=== PATIENT | female | born 1940 | race Caucasian/White ===

== ENCOUNTER → 2019-08-24 21:02 | Outpatient (CLI) | payer MEDICARE, MEDICAID, SELFPAY | PROVIDERS: PCP Internal Medicine Adolescent Medicine; Visit Provider Internal Medicine Adolescent Medicine | DX: Z20.828 Contact with and (suspected) exposure to other viral communicable diseases (principal) | CPT/HCPCS: 87275; 87276 ==

== ENCOUNTER 2020-02-01 01:56 | Inpatient (IN) | payer OTHER, MEDICARE, MEDICAID, SELFPAY ==
[2020-02-01] VITALS (16 sets, daily range): BP systolic 72–144; BP diastolic 40–90; PULSE 64–131; RESP 16–38; TEMP 36.8–42.2; O2SAT 78–99; BMI 19.5; BMI 20.8
--- NOTE | 2020-02-01 02:01 | PC.NURSE ---
unable to obtain blood pressure via manual or automatic at this time. md at bedside. attempting to obtain brachial and femoral pulse via palpation for arterial stick for abg. resp at bedside. pt remains with terminal breaths, 36 bpm; rectal temp obtained, 108F. double checked and maintained via rectal thermometer. suppository given, tylenol. stanley cath inserted. non rebreather remains.
--- NOTE | 2020-02-01 02:15 | PC.NURSE ---
continue to attempt to establish adequate iv access. IO in place. fluids infusing. attempting secondary line for continued infusions.
--- NOTE | 2020-02-01 02:30 | PC.NURSE ---
unable to obtain adequate secondary line. iv fluids infusing via IO. MD at bedside attempting to establish a central line at this time.
--- NOTE | 2020-02-01 02:38 | PC.NURSE ---
central line established to right anterior chest wall. portable chest xray performed. placement adjusted. unable to obtain flow with new placement. md removed and pressure dressing applied.
--- NOTE | 2020-02-01 02:40 | PC.NURSE ---
informed MD of bp. states he wants to get a better one before considering a pressor. cuffs changed, right arm in use.
--- NOTE | 2020-02-01 02:45 | PC.NURSE ---
secondary IV established to lower leg.
--- NOTE | 2020-02-01 02:48 | XR_ITS ---
PROCEDURE: XR CHEST PORTABLE CLINICAL HISTORY: SOB Central line placement COMPARISON: No exams were available for comparison FINDINGS: There are 3 images obtained during central line attempt. 2:49 a.m. right subclavian central line is present. The tip of the line is projected toward the neck/head not visible on the images. No evidence of pneumothorax. There is biapical pleural thickening and mild cardiomegaly with chronic pulmonary findings. Possible patchy infiltrate in the right upper lobe 2:57 a.m.. Central line tip is identified and is at the C4-C5 region on the right in the neck area. There is biapical pleural thickening 3:01 a.m.. Central venous line is been removed. No evidence of pneumothorax. There is biapical pleural thickening. Possible patchy infiltrate in the right upper lobe with some increase in markings with chronic changes in the lungs. Postsurgical changes right AC joint. Mild cardiomegaly. IMPRESSION: Status post placement of right subclavian central venous line which was subsequently removed as detailed above. Biapical pleural thickening with possible right upper lobe infiltrate with mild cardiomegaly. No evidence of pneumothorax. Dictated b Hany Austin MD 02/01/2020 06:03 Hany Austin MD in OV 02/01/2020 06:03
--- NOTE | 2020-02-01 02:56 | HMH.EDFEV ---
ED Disposition Clinical Impression: Severe sepsis with acute organ dysfunction, Severe sepsis with septic shock, Elevated troponin, VASU (acute kidney injury) UTI (urinary tract infection) Qualifiers: Urinary tract infection type: site unspecified Hematuria presence: without hematuria Qualified Code(s): N39.0 - Urinary tract infection, site not specified Disposition: Admitted As Inpatient Condition on Discharge: Critical Referrals: Provider,Referral, MD [Primary Care Provider] - - Critical Care Critical Care Time: Yes Attestation: On 02/01/20, the high probability of a clinically significant, sudden or life threatening deterioration of the following system(s) required my full and direct attention, intervention and personal management. The time I documented below is in addition to time spent performing reported procedures but includes the following listed in this critical care notation. Total Critical Care Time: 120 Vital system(s) involved:: Respiratory Failure, Shock (Septic) My critical care processes included: Assessment & monitoring of V/S, Initial and Re-exams, Data Review/Interpretation, Medication Orders and management, Documentation Medical Decision Making - Medical Records Medical records reviewed: Yes: I reviewed the patient's medical records. - [place] Inquiry Pt receiving controlled substance: No Vital Signs: 02/01/20 02:05 02/01/20 02:20 02/01/20 02:39 Temperature 108 F H Temperature Source Rectal Pulse Rate [Right Brachial] 121 H 131 H 122 H Respiratory Rate 35 H 37 H 36 H Blood Pressure [Right Arm] 73/42 L Blood Pressure Mean [Right Arm] 52 Blood Pressure Source [Right Arm] Automatic Cuff Blood Pressure Position [Right Arm] Sitting 02 Sat by Pulse Oximetry 78 L 99 95 Oxygen Delivery Method Non-Rebreather Non-Rebreather Non-Rebreather Oxygen Flow Rate (LPM) 15 15 02/01/20 03:18 02/01/20 04:12 02/01/20 04:32 Temperature Temperature Source Pulse Rate [Right Brachial] 114 H 107 H 109 H Respiratory Rate 38 H Blood Pressure [Right Arm] 80/40 L 89/50 L 72/49 L Blood Pressure Mean [Right Arm] 53 63 56 Blood Pressure Source [Right Arm] Automatic Cuff Automatic Cuff Automatic Cuff Blood Pressure Position [Right Arm] Sitting Sitting Sitting 02 Sat by Pulse Oximetry 99 99 95 Oxygen Delivery Method Non-Rebreather Non-Rebreather Non-Rebreather Oxygen Flow Rate (LPM) 02/01/20 04:35 02/01/20 04:45 Temperature 102.1 F H Temperature Source Rectal Pulse Rate [Right Brachial] 95 H Respiratory Rate 31 H Blood Pressure [Right Arm] 106/61 L Blood Pressure Mean [Right Arm] 76 Blood Pressure Source [Right Arm] Automatic Cuff Blood Pressure Position [Right Arm] Sitting 02 Sat by Pulse Oximetry 96 Oxygen Delivery Method Non-Rebreather Oxygen Flow Rate (LPM) - Lab Data Lab results reviewed: Yes: I reviewed the patient's lab results. Lab Results 02/01/20 02:31: Urine Color Straw, Urine Appearance Turbid, Urine pH 8.5, Ur Specific [place] 1.015, Urine Protein 3+, Urine Glucose (UA) Negative, Urine Ketones Negative, Urine Blood 3+, Urine Nitrate Negative, Urine Bilirubin Negative, Urine Urobilinogen 0.2, Ur Leukocyte Esterase 3+ A, Urine RBC Tntc, Urine WBC Tntc, Urine Bacteria 4+ 02/01/20 02:45: WBC 30.2 H*, RBC 4.53, Hgb 13.1, Hct 41.1, MCV 90.6, MCH 28.8, MCHC 31.8, RDW 17.3, Plt Count 351, MPV 9.4, Neut % (Auto) 89.2 H, Lymph % (Auto) 6.8 L, [place] % (Auto) 3.3, Eos % (Auto) 0.1, Baso % (Auto) 0.4, Neut # (Auto) 26.9 H, Lymph # (Auto) 2.1, [place] # (Auto) 1.0, Eos # (Auto) 0.0, Baso # (Auto) 0.1, Total Counted 100, Neutrophils % (Manual) 84 H, Lymphocytes % (Manual) 15, Monocytes % (Manual) 1 L, Platelet Estimate Normal, Stomatocytes 1+ 02/01/20 02:45: Sodium 155 H*, Potassium 4.6, Chloride 120 H, Carbon Dioxide 20 L, Anion Gap 19.6 H, BUN 85 H, Creatinine 1.30 H, Estimated Creat Clear 24, Estimated GFR 39 L, Est GFR ( Amer) 48 L, Glucose 270 H, Calcium 7.9 L, Total Bilirubin
[2020-02-01 02:58] LABS: Microscopic, Urine URINE MICROSCOPIC (MICROSCOPIC)
--- NOTE | 2020-02-01 03:00 | PC.NURSE ---
IVF's continue via IO and IV to left leg. multiple attempts to est IV access and femoral access for blood obtainment unsuccessful via md and rn, as well as draft roller picker. brother at bedside. discussed plan of care with; agreeable to make her comfortable and continue DNR as her wishes state . no additional requests.
[2020-02-01 03:01] LABS: Basophils # 0.1 K/mm3 (0-0.2); Basophils % 0.4 % (0.1-2.0); Eosinophils % 0.1 % (0.1-12.0); Hematocrit 41.1 % (37.0-47.0); Hemoglobin 13.1 g/dL (12.2-16.2); Lymphocytes # 2.1 K/mm3 (0.7-4.5); Lymphocytes % 6.8 % (10-50); Mean Corpuscular HGB Conc 31.8 g/dL (31.8-35.4); Mean Corpuscular Hemoglobin 28.8 pg (27.0-31.2); Mean Corpuscular Volume 90.6 fl (81-99); Mean Platelet Volume 9.4 fl (7.4-10.4); Monocytes % 3.3 % (1.7-9.3); Neutrophils # 26.9 K/mm3 (1.8-7.8); Neutrophils % 89.2 % (37.0-80.0); Platelet Count 351 K/mm3 (142-424); Red Blood Count 4.53 M/mm3 (4.20-5.40); Red Cell Distribution Width 17.3 % (11.5-17.5); White Blood Count 30.2 K/mm3 (4.8-10.8)
[2020-02-01 03:04] LABS: MANUAL DIFFERENTIAL MANUAL DIFFERENTIAL (MANUAL DIFF)
[2020-02-01 03:05] LABS: VBG Base Excess -8.7 mmol/L (-2.4-2.3); VBG HCO3 17.9 mmol/L (23-30); VBG Oxygen Saturation 94.1 % (50-70); VBG PH 7.29 mmol/L (7.31-7.41); VBG PO2 78.7 mmol/L (28-40)
[2020-02-01 03:07] LABS: Alanine Aminotransferase 77 U/L (12-78); Albumin Level 2.7 g/dl (3.5-5.0); Albumin/Globulin Ratio 0.8 (1.1-1.8); Alkaline Phosphatase 55 U/L (38-126); Anion Gap 19.6 mEq/L (5-15); Aspartate Amino Transferase 52 U/L (14-36); Bilirubin,Total 0.5 mg/dl (0.2-1.3); Calcium 7.9 mg/dl (8.4-10.2); Carbon Dioxide 20 mmol/L (22.0-30.0); Chloride 120 mmol/L (98-107); Creatinine Clearance Estimated 24 mL/min (50-200); Estimated Glomerular Filt Rate 39 ml/min (>60); GFR (African American) 48 ML/MIN (>60); Globulin 3.3 g/dL (1.3-3.2); Glucose 270 mg/dl (74-100); Lactic Acid 5.2 mmol/L (0.7-2.1); Potassium 4.6 mmoL/L (3.5-5.1)
--- NOTE | 2020-02-01 03:20 | PC.NURSE ---
no pressor at this time. pt continues to improve with ivf's. no new orders at this time.
[2020-02-01 03:24] LABS: Sodium 155 mmol/L (136-145); Troponin I 1.75 ng/ml (0.00-0.034)
[2020-02-01 03:25] LABS: Blood Urea Nitrogen 85 mg/dl (7-17)
[2020-02-01 03:28] LABS: Adenovirus,PCR Not Detected (NotDetected); Bordetella Pertussis Not Detected (NotDetected); Chlamydophila Pneumoniae, PCR Not Detected (NotDetected); Coronavirus 19, PCR Not Detected (NotDetected); Coronavirus 229E Not Detected (NotDetected); Coronavirus NL63 Not Detected (NotDetected); Coronavirus OC43 Not Detected (NotDetected); Coronovirus HKU1,PCR Not Detected (NotDetected); Human Metapneumovirus Not Detected (NotDetected); Influenza A, PCR Not Detected (NotDetected); Influenza AH1, 2009 Not Detected (NotDetected); Influenza AH1, PCR Not Detected (NotDetected); Influenza AH3,PCR Not Detected (NotDetected); Influenza B, PCR Not Detected (NotDetected); Mycoplasma Pneumoniae, PCR Not Detected (NotDetected); Parainfluenza 1, PCR Not Detected (NotDetected); Parainfluenza 2, PCR Not Detected (NotDetected); Parainfluenza 3, PCR Not Detected (NotDetected); Parainfluenza 4, PCR Not Detected (NotDetected); Respiratory Syncytial Virus Not Detected (NotDetected); Rhinovirus/Enterovirus Not Detected (NotDetected)
--- NOTE | 2020-02-01 03:29 | ECG_ITS ---
APPROVED REPORT Exam: Resting ECG HR:110 bpm ECG Measurements Heart Rate 110 AXES KS 128 P 77 QRSd 70 QRS -57 QT 308 T 33 QTc 416 <Conclusion> Sinus tachycardia Left axis deviation,LAHB Low voltage QRS NDST-T Changes Abnormal ECG Electronically signed by : Olegairo Yoder, 02/01/2020 14:59:44
[2020-02-01 03:35] LABS: Bilirubin,Urine Negative (Negative); Blood, Urine 3+ (Negative); Glucose,Urine (UA) Negative (Negative); Ketones,Urine Negative (Negative); Leukocyte Esterase,Urine 3+ (Negative); Nitrate,Urine Negative (Negative); PH,Urine 8.5 (5.0-8.5); Protein,Urine 3+ (Negative); Specific Gravity, Urine 1.015 (1.005-1.030); Urobilinogen,Urine 0.2 EU/dl (0.2)
[2020-02-01 03:46] LABS: Appearance,Urine Turbid (Clear); Color,Urine Straw (Yellow)
--- NOTE | 2020-02-01 03:50 | PC.NURSE ---
no pressor orders at this time. waiting on covid testing.
[2020-02-01 03:51] LABS: Bacteria,Urine 4+ /lpf; RBC,Urine TNTC #/hpf (0-3); WBC,Urine TNTC #/hpf (0-3)
[2020-02-01 04:12] LABS: Lymphocytes % 15 % (10-50); Monocytes % 1 % (2-9); Neutrophils % 84 % (42-76); Total Cells Counted 100
[2020-02-01 04:13] LABS: Platelet Estimate Normal; Stomatocytes 1+
--- NOTE | 2020-02-01 04:15 | PC.NURSE ---
no pressor orders at this time. bp continues to improve. pt's color and appearance, work of breathing improving. see vs.
--- NOTE | 2020-02-01 05:30 | PC.NURSE ---
patient up to floor via stretcher.
[2020-02-01 06:57] LABS: Reflex Lactic Add Lactic Reflex
[2020-02-01 07:16] LABS: Potassium 3.7 mmoL/L (3.5-5.1)
[2020-02-01 07:19] LABS: Anion Gap 15.7 mEq/L (5-15); Calcium 7.7 mg/dl (8.4-10.2); Carbon Dioxide 18 mmol/L (22.0-30.0); Creatinine Clearance Estimated 31 mL/min (50-200); Estimated Glomerular Filt Rate 48 ml/min (>60); GFR (African American) 58 ML/MIN (>60); Glucose 135 mg/dl (74-100); Lactic Acid Follow Up (RFLX 1) 2.6 mmol/L (0.7-2.1)
[2020-02-01 07:19] LABS: POC Glucose,Bedside 232 (70-110)
[2020-02-01 07:21] LABS: Chloride 128 mmol/L (98-107); Sodium 158 mmol/L (136-145)
[2020-02-01 07:22] LABS: Blood Urea Nitrogen 83 mg/dl (7-17)
--- NOTE | 2020-02-01 07:37 | P.CONPHA_ITS ---
[facility] Pharmacy VTE Monitoring - Patient Demographics Admission date: 02/01/20 Report Date: 02/01/20 Time: 07:38 Allergies/Adverse Reactions: Patient Allergies No Known Allergies Allergy (Verified 02/01/20 05:41) Height: 1.52 m Weight: 48.194 kg Patient Problems: Current Active Problems UTI (urinary tract infection) (Acute) Severe sepsis with acute organ dysfunction (Acute) Severe sepsis with septic shock (Acute) Elevated troponin (Acute) VASU (acute kidney injury) (Acute) - VTE Risk Labs: VTE Related Lab Results Hgb 13.1 g/dL (12.2-16.2) 02/01/20 02:45 Hct 41.1 % (37.0-47.0) 02/01/20 02:45 Plt Count 351 K/mm3 (142-424) 02/01/20 02:45 BUN 83 mg/dl (7-17) H 02/01/20 06:45 Creatinine 1.10 mg/dl (0.52-1.04) H 02/01/20 06:45 Estimated Creat Clear 31 mL/min (50-200) 02/01/20 06:45 VTE Score: 4 VTE Risk Level: Low Risk - Prophylaxis VTE Prophylaxis Ordered?: Yes Types of VTE Prophylaxis: TEDS Knee High Location of Applied Device: Bilateral Lower Extremeties - VTE Diagnosis Confirmed Treatment or plan recommended: Continue Current Treatment
[2020-02-01 07:46] LABS: Basophils # 0.2 K/mm3 (0-0.2); Basophils % 0.6 % (0.1-2.0); Eosinophils % 0.1 % (0.1-12.0); Hematocrit 46.9 % (37.0-47.0); Mean Corpuscular HGB Conc 31.2 g/dL (31.8-35.4); Mean Corpuscular Hemoglobin 28.7 pg (27.0-31.2); Mean Platelet Volume 10.3 fl (7.4-10.4); Monocytes # 2.1 K/mm3 (0.1-1.0); Monocytes % 6.1 % (1.7-9.3); Neutrophils # 29.7 K/mm3 (1.8-7.8); Neutrophils % 87.3 % (37.0-80.0); Platelet Count 240 K/mm3 (142-424); Red Cell Distribution Width 17.5 % (11.5-17.5)
[2020-02-01 07:50] LABS: Hemoglobin 14.6 g/dL (12.2-16.2)
--- NOTE | 2020-02-01 08:04 | HMH.HP ---
*Admission Date: 02/01/20 *Chief complaint: SICK *History of present illness: 79-year-old female long-term resident of [place] who presented to the ER via EMS due to worsening appearance of being ill. Was febrile, tachypneic, and showing mottling at the fpc. Patient is nonverbal and bedbound. Nursing contacted on-call physician, recommended coming to the ER for assessment. On arrival patient was hypothermic with a temperature 108, tachypneic, and appeared clinically dry. Initial work-up concerning for septic shock with organ dysfunction, elevated lactate, kidney injury, and electrolyte disturbances. Difficulty getting IV access in the ER with subsequent IO placement for fluid resuscitation. Unable to assess further history, review of systems, at bedside this morning as patient has by herself. [facility] History I have reviewed the patient's past medical history: No (Unable to obtain from patient, no patient surrogate at bedside) *Have you ever received a pneumonia vaccine?: Yes *Have you received a flu vaccine this season?: Yes Other Surgeries: Yes: Other - *Social History Smoking Status: Never smoker Alcohol Intake: never *Occupational Status:: disabled Housing: fpc *Travel in the last 8 weeks: None Family Hx:: Unable to obtain Review of Systems - Review of Systems Review of systems:: unable to obtain Meds Home Medications Medication Instructions Recorded Confirmed Type acetaminophen 500 mg tablet 500 mg G-TUBE Q6HP PRN 01/18/19 02/01/20 History baclofen 10 mg tablet 10 mg G-TUBE HS 01/18/19 02/01/20 History cholecalciferol (vitamin D3) 25 2,000 unit G-TUBE DAILY 01/18/19 02/01/20 History mcg (1,000 unit) capsule metoclopramide HCl 5 mg tablet 10 mg G-TUBE BID 01/18/19 02/01/20 History multivitamin,ww-wldy-wlibbzsm 1 tab G-TUBE DAILY 01/18/19 02/01/20 History polyethylene glycol 3350 17 17 g G-TUBE DAILY 01/18/19 02/01/20 History gram/dose oral powder sennosides 8.6 mg tablet 17.2 mg G-TUBE BID PRN 01/18/19 02/01/20 History Glycopyrrolate 1 mg G-TUBE BID 02/01/20 02/01/20 History Ipratropium/Albuterol Sulfate 3 ml IH Q6H PRN 02/01/20 02/01/20 History [Duoneb 3mL neb] Omeprazole [Omeprazole 20mg Tab] 20 mg G-TUBE DAILY 02/01/20 02/01/20 History Ondansetron [Zofran 4mg ODT] 4 mg G-TUBE Q6HP PRN 02/01/20 02/01/20 History levoFLOXacin [Levaquin] 500 mg G-TUBE DAILY 02/01/20 02/01/20 History Allergies Allergy/AdvReac Type Severity Reaction Status Date / Time No Known Allergies Allergy Verified 02/01/20 05:41 Exam Vital signs and Labs for Last 24 Hours: Temp Pulse Resp BP Pulse Ox 100.8 F H 102 H 30 H 144/90 H 90 L 02/01/20 05:30 02/01/20 05:30 02/01/20 05:45 02/01/20 05:30 02/01/20 05:45 Laboratory Results - last 24 hr 02/01/20 01:45: POC Glucose 232 H 02/01/20 02:31: Urine Color Straw, Urine Appearance Turbid, Urine pH 8.5, Ur Specific [place] 1.015, Urine Protein 3+, Urine Glucose (UA) Negative, Urine Ketones Negative, Urine Blood 3+, Urine Nitrate Negative, Urine Bilirubin Negative, Urine Urobilinogen 0.2, Ur Leukocyte Esterase 3+ A, Urine RBC Tntc, Urine WBC Tntc, Urine Bacteria 4+ 02/01/20 02:45: WBC 30.2 H*, RBC 4.53, Hgb 13.1, Hct 41.1, MCV 90.6, MCH 28.8, MCHC 31.8, RDW 17.3, Plt Count 351, MPV 9.4, Neut % (Auto) 89.2 H, Lymph % (Auto) 6.8 L, [place] % (Auto) 3.3, Eos % (Auto) 0.1, Baso % (Auto) 0.4, Neut # (Auto) 26.9 H, Lymph # (Auto) 2.1, [place] # (Auto) 1.0, Eos # (Auto) 0.0, Baso # (Auto) 0.1, Total Counted 100, Neutrophils % (Manual) 84 H, Lymphocytes % (Manual) 15, Monocytes % (Manual) 1 L, Platelet Estimate Normal, Stomatocytes 1+ 02/01/20 02:45: Sodium 155 H*, Potassium 4.6, Chloride 120 H, Carbon Dioxide 20 L, Anion Gap 19.6 H, BUN 85 H, Creatinine 1.30 H, Estimated Creat Clear 24, Estimated GFR 39 L, Est GFR ( Amer) 48 L, Glucose 270 H, Calcium 7.9 L, Total Bilirubin 0.5, AST 52 H, ALT 77, Alkaline Phosphatase 55, Troponin I 1.75 H, Total Protein 6.0 L
--- NOTE | 2020-02-01 08:11 | HMH.PHAINT ---
MEDICATION RECONCILIATION COMPLETED ON PATIENT USING MAR FROM [facility]. -LAUREN GOMEZ, ELLIOTTD
[2020-02-01 09:00] LABS: Adenovirus F 40/41, stool Not Detected (NotDetected); Astrovirus Not Detected (NotDetected); Campylobacter Not Detected (NotDetected); Clostridium Difficile A/B, PCR Not Detected (NotDetected); Cryptosporidium Not Detected (NotDetected); Cyclospora Cayetanesis Not Detected (NotDetected); Entamoeba histolytica Not Detected (NotDetected); Enteroaggregative E coli Not Detected (NotDetected); Enteropathogenic E coli Not Detected (NotDetected); Enterotoxigenic E coli Not Detected (NotDetected); Giardia lamblia Not Detected (NotDetected); Norovirus Not Detected (NotDetected); Plesimonas Shigalloides, PCR Not Detected (NotDetected); Rotavirus A Not Detected (NotDetected); Salmonella, PCR Not Detected (NotDetected); Sapovirus Not Detected (NotDetected); Shiga-like toxin E coli Not Detected (NotDetected); Shigella Enterovasive E coli Not Detected (NotDetected); Vibrio Cholerae Not Detected (NotDetected); Vibrio, PCR Not Detected (NotDetected); Yersinia Entercolitica, PCR Not Detected (NotDetected)
[2020-02-01 09:06] LABS: Reflex Lactic (2 hrs) Add Lactic Reflex
--- NOTE | 2020-02-01 10:46 | SW/DCPLANNER ---
Addendum entered by Gabi Snyder 02/01/20 15:01: OF 3:00 PM TODAY THIS PATIENT WILL CONVERT TO HOSPICE INPATIENT PALLIATIVE CARE... DR MOSES HAS AGREED WITH THE PLAN AND TO WITHDRAW ALL IV'S AND ANTIBIOTICS AND MAKE PATIENT COMFORTABLE AND PROVIDE SUPPORT TO FAMILY MEMBERS... Original Note: RECEIVED REFERRAL FOR A HOSPICE CONSULT FOR THIS PATIENT.... MS LONG IS A RESIDENT OF [place] AND PRESENTED INTO THE HOSPITAL UTI AND SEPTIC SHOCK....PATIENT HAS BEEN COMPROMISED FOR SOMETIME AND HER BROTHER IS HER GUARDIAN AND HE HAS AGREED TO HAVE HOSPICE COME AND EVALUATE..I TOLD HIM HOSPICE MAY BE CONTACTING HIM TO LET HIM KNOW THE PLAN...
--- NOTE | 2020-02-01 18:19 | PC.NURSE ---
did verify with hospice that they had spoke with brother who only wanted comfort care. may stop antibiotics and fluids
--- NOTE | 2020-02-01 18:30 | PC.NURSE ---
PT LETHARGIC T/O SHIFT, HOSPICE CONSULTED THIS AFTERNOON, FLUIDS AND ANTIBIOTICS HAVE BEEN D/C. IO ACCESS HAS BEEN D/C PER DR MOSES. PT HAS NEEDED SUCTION THIS SHIFT R/T N/V, 1 EPISODE OF EMESIS DURING BED CHANGE, WATERY STOOLS NOTED T/O SHIFT *3. STOOL SAMPLE SENT TO LAB THIS AM. PT DOES NOT SHOW SIGNS OF PAIN OR AGITATION INDICATED BY CALM RELAXED PRESENTATION. Q2 TURNS AND MOUTH CARE PER PROTOCOL. CURRENTLY ON 3L NC, FC DRAINING DARK [place]ST[place] COLORED URINE. PATIENT APPEARS COMFORTABLE, WILL CONTINUE TO MONITOR
[2020-02-02] VITALS (7 sets, daily range): BP systolic 93–107; BP diastolic 55–60; PULSE 51–102; RESP 16–30; TEMP 36.3–36.8; O2SAT 92–98; BMI 20.7
--- NOTE | 2020-02-02 06:27 | PC.NURSE ---
No changes this shift. Comfort care continued. Pt repositioned Q2H w/ oral care given as well. Vitale draining dark yellow urine. 3LNC in place. No BM or emesis noted this shift. Pt appears comfortable.
--- NOTE | 2020-02-02 06:43 | PC.NURSE ---
Bed scale was not working. RN notified.
--- NOTE | 2020-02-02 06:45 | PC.NURSE ---
Bed scale was not working. RN notified.
--- NOTE | 2020-02-02 06:47 | PC.NURSE ---
Bed scale was not working. RN notified
--- NOTE | 2020-02-02 07:52 | HMH.ACPN2 ---
Internal Medicine - PN: Subj *Date: 02/02/20 *Time: 07:52 Interval history: Unresponsive, minimal urine output. Exam Vital signs and Labs for Last 24 Hours: Temp Pulse Resp BP Pulse Ox 98.8 F 87 22 92/50 L 95 02/01/20 20:00 02/01/20 20:00 02/01/20 20:00 02/01/20 20:00 02/01/20 20:00 Laboratory Results - last 24 hr 02/01/20 06:45: WBC 34.0 H*, RBC 5.10, Hgb 14.6 D, Hct 46.9, MCV 92.0, MCH 28.7, MCHC 31.2 L, RDW 17.5, Plt Count 240 D, MPV 10.3, Neut % (Auto) 87.3 H, Lymph % (Auto) 6.0 L, [place] % (Auto) 6.1, Eos % (Auto) 0.1, Baso % (Auto) 0.6, Neut # (Auto) 29.7 H, Lymph # (Auto) 2.0, [place] # (Auto) 2.1 H, Eos # (Auto) 0.0, Baso # (Auto) 0.2 02/01/20 08:45: Stl Aeromonas (PCR) Not detected, Stl C. cayetanensis PCR Not detected, Stool Rotavirus (PCR) Not detected, Stl Adenov F 40/41 PCR Not detected, Stool Astrovirus (PCR) Not detected, Stool Campylobacter PCR Not detected, Stl C.difficile Tox PCR Not detected, Stool Cryptosporidium PCR Not detected, Stl E.coli Shiga Tox PCR Not detected, Stool E coli O157 PCR Not detected, Stl Enterotoxigenic E PCR Not detected, Stool EPEC (PCR) Not detected, Stool EAEC (PCR) Not detected, Stl E. histolytica PCR Not detected, Stool Giardia Lamblia PCR Not detected, Stool Salmonella PCR Not detected, Stool Sapovirus (PCR) Not detected, Stl P. shigelloides PCR Not detected, Stl Shigella/EIEC PCR Not detected, St Y.enterocolitica PCR Not detected, Stool Vibrio (PCR) Not detected, Stl Vibrio cholerae PCR Not detected, Stl Norovirus GI/GII PCR Not detected 02/01/20 09:26: Lactate 2.0 I & O for Last 24 hours: Intake & Output 01/30/20 01/31/20 02/01/20 02/02/20 11:59 11:59 11:59 11:59 Intake Total 100 / 100 0 / 0 Output Total 925 / 925 Balance 100 / 100 -925 / -925 Weight 106 lb 4 oz Microbiology Reports for the Last 24 Hours: Microbiology 02/01/20 02:31 Urine,Catheterized Urine Culture - Preliminary NO GROWTH AFTER 24 HOURS Narrative: Contracted, poorly responsive. Moving air fairly well in her lungs, heart rate regular. Abdomen soft, neurologic exam vastly compromised, skin turgor poor. ENT exam shows dry but clear oropharynx. Vitale catheter draining minimal amounts of urine Assessment and Plan (1) VASU (acute kidney injury) Current visit: Yes Status: Acute Category: Medical Code(s): N17.9 - Acute kidney failure, unspecified (2) Elevated troponin Current visit: Yes Status: Acute Category: Medical Code(s): R79.89 - Other specified abnormal findings of blood chemistry (3) Severe sepsis with acute organ dysfunction Current visit: Yes Status: Acute Category: Medical Code(s): A41.9 - Sepsis, unspecified organism; R65.20 - Severe sepsis without septic shock (4) UTI (urinary tract infection) Current visit: Yes Status: Acute Qualifiers: Urinary tract infection type: site unspecified Hematuria presence: without hematuria Qualified Code(s): N39.0 - Urinary tract infection, site not specified Category: Medical Code(s): N39.0 - Urinary tract infection, site not specified (5) Multiorgan failure Current visit: Yes Status: Acute Category: Medical (6) Dehydration with hypernatremia Current visit: Yes Status: Acute Category: Medical Code(s): E87.0 - Hyperosmolality and hypernatremia (7) Metabolic acidosis Current visit: Yes Status: Acute Category: Medical Code(s): E87.2 - Acidosis - Assessment and plan all Dx Assessment and Plan for all problems:: Significant metabolic problems. Family has elected palliative/hospice care. This will be continued. Patient appears comfortable. Terminal outcome is imminent.
--- NOTE | 2020-02-02 16:54 | PC.NURSE ---
HERE AT THIS TIME FROM HOSPICE.
--- NOTE | 2020-02-02 17:38 | PC.NURSE ---
COMFORT MEASURES CONTINUE. REMAINS ON 3 L O2 PER NASAL CANNULA. OCCASIONAL WET COUGH NOTED. PT SUCTIONED AND ORAL CARE PERFORMED Q2H. ROBINUL GIVEN TWICE THIS SHIFT. HAS BEEN TURNED Q2H. RENTERIA CATH TO DRAIN AT BEDSIDE W/ CRI[place]O COLOR URINE. NO BM. PT IS CONTRACTED AND ONLY RESPONSIVE TO DEEP PAIN. AFTER ADMIN OF MORPHINE AND ATIVAN PT'S RESP RATE HAS SLOWED AND NOT LABORED BEGINNING OF SHIFT. HOSPICE NURSE UPDATED ON PT'S CONDITION EARLIER THIS SHIFT. CALL ABRAHAM W/IN REACH. SAFETY IN PLACE.
--- NOTE | 2020-02-02 20:43 | PC.NURSE ---
Pt's room air sat at rest = 88%.
[2020-02-03 03:28] LABS: Peripheral Smear Review Scanned Result
--- NOTE | 2020-02-03 03:52 | PC.NURSE ---
pt has been resting quietly throughout shift. has been turned and oral care given q2. lungs diminished throughout on 3L @ NC. no labored breathing or increased respirations rate. F/c in place draining dark yellow urine. Ativan administer once this shift.
[2020-02-03 05:38] VITALS: RESP 21
--- NOTE | 2020-02-03 07:47 | HMH.ACPN2 ---
Internal Medicine - PN: Subj *Date: 02/03/20 *Time: 07:45 Interval history: Remains comfortable overnight. Awake on exam but not responsive to verbal or physical stimuli. Appears comfortable. No acute distress. Exam Narrative: Contracted, poorly responsive. Moving air fairly well in her lungs, heart rate regular. Abdomen soft, neurologic exam vastly compromised, skin turgor poor. ENT exam shows dry but clear oropharynx. Vitale catheter draining minimal amounts of urine Assessment and Plan (1) VASU (acute kidney injury) Current visit: Yes Status: Acute Category: Medical Code(s): N17.9 - Acute kidney failure, unspecified (2) Elevated troponin Current visit: Yes Status: Acute Category: Medical Code(s): R79.89 - Other specified abnormal findings of blood chemistry (3) Severe sepsis with acute organ dysfunction Current visit: Yes Status: Acute Category: Medical Code(s): A41.9 - Sepsis, unspecified organism; R65.20 - Severe sepsis without septic shock (4) UTI (urinary tract infection) Current visit: Yes Status: Acute Qualifiers: Urinary tract infection type: site unspecified Hematuria presence: without hematuria Qualified Code(s): N39.0 - Urinary tract infection, site not specified Category: Medical Code(s): N39.0 - Urinary tract infection, site not specified (5) Multiorgan failure Current visit: Yes Status: Acute Category: Medical (6) Dehydration with hypernatremia Current visit: Yes Status: Acute Category: Medical Code(s): E87.0 - Hyperosmolality and hypernatremia (7) Metabolic acidosis Current visit: Yes Status: Acute Category: Medical Code(s): E87.2 - Acidosis - Assessment and plan all Dx Assessment and Plan for all problems:: 79-year-old female with history of cerebral palsy, continues to have significant metabolic problems. Family has elected palliative/hospice care. This will be continued. Patient appears comfortable. Terminal outcome is imminent.
[2020-02-03 07:48] VITALS: BP 101/50; PULSE 90; RESP 16; TEMP 36.2; O2SAT 92
[2020-02-03 08:10] VITALS: PULSE 90; RESP 16; O2SAT 92
--- NOTE | 2020-02-03 16:52 | PC.NURSE ---
Pt has been resting quietly this shift. Lung sounds reveal expiratory rhonchi. O2 is being administered via NC @ 3 LPM. Pt has been turned/repositioned and given oral care Q2H throughout the shift. F/C is patent and draining clear, dark yellow urine at bedside to gravity. 20 G peripheral IV in place to the LT ankle is patent and SL. 22 G peripheral IV in the LT wrist is patent and SL. VS this AM were stable. Will continue to monitor.
[2020-02-03 20:00] VITALS: BP 83/39; PULSE 98; RESP 20; TEMP 36.1; O2SAT 93
--- NOTE | 2020-02-04 04:05 | PC.NURSE ---
Pt has been resting quietly this shift. Lung sounds rhonchi throughout . O2 via NC @ 3 LPM. Pt has been turned/repositioned and given oral care Q2H throughout the shift. Pt has a blister on R elbow dressing applied. Dressing applied to R distal foot to prevent breakdown. F/C is patent and draining clear, dark yellow urine at bedside to gravity.
--- NOTE | 2020-02-04 07:47 | P.PN_ITS ---
Internal Medicine - PN: Subj *Date: 02/04/20 *Time: 08:53 Interval history: Remains comfortable overnight. Awake on exam but not responsive to verbal or physical stimuli. Appears comfortable. No acute distress. Exam Vital signs and Labs for Last 24 Hours: Temp Pulse Resp BP Pulse Ox 96.9 F L 98 H 20 83/39 L 93 L 02/03/20 20:00 02/03/20 20:00 02/03/20 20:00 02/03/20 20:00 02/03/20 20:00 I & O for Last 24 hours: Intake & Output 02/01/20 02/02/20 02/03/20 02/04/20 23:59 23:59 23:59 23:59 Intake Total 100 / 100 0 / 0 0 / 0 Output Total 525 / 525 400 / 400 650 / 650 Balance -425 / -425 -400 / -400 -650 / -650 Weight 48.194 kg 48 kg Narrative: Moving air fairly well in her lungs, heart rate regular. Abdomen soft, neurol ogic exam vastly compromised, skin turgor poor. ENT exam shows dry but clear oropharynx. Vitale catheter draining minimal amounts of urine Assessment and Plan (1) VASU (acute kidney injury) Current visit: Yes Status: Acute Category: Medical Code(s): N17.9 - Acute kidney failure, unspecified (2) Elevated troponin Current visit: Yes Status: Acute Category: Medical Code(s): R79.89 - Other specified abnormal findings of blood chemistry (3) Severe sepsis with acute organ dysfunction Current visit: Yes Status: Acute Category: Medical Code(s): A41.9 - Sepsis, unspecified organism; R65.20 - Severe sepsis without septic shock (4) UTI (urinary tract infection) Current visit: Yes Status: Acute Qualifiers: Urinary tract infection type: site unspecified Hematuria presence: without hematuria Qualified Code(s): N39.0 - Urinary tract infection, site not specified Category: Medical Code(s): N39.0 - Urinary tract infection, site not specified (5) Multiorgan failure Current visit: Yes Status: Acute Category: Medical (6) Dehydration with hypernatremia Current visit: Yes Status: Acute Category: Medical Code(s): E87.0 - Hyperosmolality and hypernatremia (7) Metabolic acidosis Current visit: Yes Status: Acute Category: Medical Code(s): E87.2 - Acidosis - Assessment and plan all Dx Assessment and Plan for all problems:: 79-year-old female with history of cerebral palsy, continues to have significant metabolic problems. Family has elected palliative/hospice care. This will be continued. Patient appears comfortable. Terminal outcome is imminent.
[2020-02-04 08:00] VITALS: BP 121/56; PULSE 106; RESP 32; TEMP 37.1; O2SAT 86
--- NOTE | 2020-02-04 10:43 | SW/DCPLANNER ---
Addendum entered by Hanane Addison 02/04/20 12:45: Ana María has stated that this patient will continue under inpatient Hospice and will re-evaluate over the weekend. Original Note: Ana María with Hospice will be at [facility] to re evaluate this patient today.
[2020-02-04 15:20] VITALS: BP 117/59; PULSE 107; RESP 24; TEMP 37; O2SAT 87
--- NOTE | 2020-02-04 18:09 | PC.NURSE ---
Addendum entered by Rosalinda Zaragoza RN 02/04/20 18:15: pt noted to blink eyes at random times. also when suctioning pt or when given oral care pt would attempt to close mouth. Original Note: pt has rested comfortably off and on. pt has been turned q2hr, and given oral care q2hr. pt was given a bath today. dressings for protection on elbow and foot changed. elbow protectors placed on ble. dressing to gtube changed. sophia cont. to monitor. and keep pt comfortable.
[2020-02-04 20:05] VITALS: BP 87/45; PULSE 112; RESP 26; TEMP 37.2; O2SAT 85
[2020-02-04 23:29] VITALS: O2SAT 88
--- NOTE | 2020-02-05 03:52 | PC.NURSE ---
Pt remains comfortable and medicated per MAR. Lungs clear but diminished shallow breathing, few episodes of agonal breathing noted. Pt turned Q2 and oral care provided. secretions suctioned X2 this shift. F/c draining tea colored urine.
--- NOTE | 2020-02-05 05:18 | P.DN_ITS ---
Pronouncement Note - Date and Time of Date of : 02/05/20 Time of : 04:55 - PCOD Preliminary cause of : Bacteremia - Additional Data Confirmation of : no pulse, no respirations, pupils fixed and dilated Family: contacted Attending/PCP notified?: Yes Attending physician: Mckay Vazquez MD Was code activated?: No Autopsy requested?: No cigar packing examiner notified?: No Organ bank notified?: Yes Advance directives: Yes
--- NOTE | 2020-02-05 05:23 | PC.NURSE ---
0420 notice change of pt condition. called brother and left voicemail that pt's condition [address] Bhagat notifythat pt appears to no longer breathing. MD elected for ER MD to pronounced 0450 ER MD arrived to floor 0455 ER MD pronounced 0500 Spoke with information technology teacher hospice nurse Geno to notified of pt's passing 0505 called pt's brother again and left voicemail for him to call hospital
--- NOTE | 2020-02-05 05:38 | PC.NURSE ---
called [facility] pt was ruled out due to age. Spoke with Noni Chase Case # [id number]
--- NOTE | 2020-02-05 05:58 | PC.NURSE ---
POST MORTUM CARE PROVIDED AT THIS TIME.
--- NOTE | 2020-02-05 07:48 | HMH.DEADDC ---
Discharge Sum: Prov - Provider Primary care physician: Ross Denson MD Visit Care Team Role Provider Type Ross Denson MD Primary Care Provider Staff Physician Breezy Spicer MD Emergency Provider Staff Physician Mckay Vazquez MD Admit Provider Staff Physician Attending Provider Attending physician on admission: Mckay Vazquez Consults: 02/01/20 08:15 Care Management Consult [Consult to Case Management] [CONS] Routine Reason For Consult: Hospice evaluation Pronouncing clinician: Breezy Spicer Discharge Sum: Diag - PCOD Cause of : Urosepsis Discharge Sum: Summary - Date and Time Date of admission: 02/01/20 05:31 Date of : 02/05/20 Time of : 04:55 - Hospital Course prior to Hospital Course Information: 79-year-old female, long-term senior care resident with G-tube dependence, bedbound, history of cerebral palsy. Was admitted due to worsening respiratory symptoms, fever, decreased response to stimuli. On presentation found to be hypothermic with a temperature of 108. Dehydrated with electrolyte disturbances, meeting severe sepsis criteria. Was started on broad-spectrum antibiotics for concern for urosepsis with aggressive fluid resuscitation. Patient showed stabilization initially but continued to have multiorgan dysfunction. Goals of care discussion with family led to decision to transfer care to palliative care and focus on comfort and symptom management over curative measures. Antibiotics were discontinued. IV fluids were stopped. Patient was managed with morphine and Ativan for pain and agitation. Supplemental oxygen was continued but not escalated. Patient showed gradual decline over the next 3 days. She succumbed to her infection and organ dysfunction early in the morning on the 15. - Additional Data Confirmation of as documented by pronouncing clinician: no pulse, no respirations, no heart sounds, pupils fixed and dilated Family: contacted Attending/PCP notified?: Yes Attending physician: Mckay Vazquez MD Was code activated?: No Autopsy requested?: No light out examiner notified?: No Organ bank notified?: Yes Advance directives: No Hospice patient?: Yes
--- NOTE | 2020-02-05 07:59 | PC.NURSE ---
called next of kin (Aleks Bose) to notify of pt's . He did not answer. Did not leave . Will attempt again later.
--- NOTE | 2020-02-05 08:30 | PC.NURSE ---
received call back from pt's next of kin (Aleks Bose). Informed him of pt's passing. He verbalized understanding and reports that [facility] will perform removal of body. Aleks will arrive to [facility] in next 1-2hrs to sign provisional. Will contact [facility] once he arrives.
--- NOTE | 2020-02-05 10:55 | PC.NURSE ---
son arrived to facility and signed provisional. Called [facility] for removal.
--- NOTE | 2020-02-05 14:31 | PC.NURSE ---
body removed by [facility]
== END 2020-02-05 14:33 | disposition expired | DRG 682 ==
LOC: ER 03:42 → 2ND 06:53
PROVIDERS: Admitting Provider Internal Medicine Adolescent Medicine; Emergency Provider Emergency Medicine; PCP Internal Medicine Adolescent Medicine; Visit Provider Internal Medicine Adolescent Medicine
DX: N17.9 Acute kidney failure, unspecified (principal); A41.9 Sepsis, unspecified organism; R65.20 Severe sepsis without septic shock; N39.0 Urinary tract infection, site not specified; E87.2 Acidosis; E87.0 Hyperosmolality and hypernatremia; E86.0 Dehydration; Z66 Do not resuscitate; Z79.899 Other long term (current) drug therapy; Z93.1 Gastrostomy status; Z74.01 Bed confinement status; I50.89 Other heart failure; G80.9 Cerebral palsy, unspecified
CPT/HCPCS: 36415; 71045; 80048; 80053; 81001; 82803; 82962; 83605; 84484; 85007; 85025; 87040; 87086; 87506; 87581; 87633; 87798; 93005; 94761; 96365; 96366; 99285; C1751; J1335; J2405